=== PATIENT | male | born 1960 | race Caucasian/White ===

== ENCOUNTER → 2023-06-10 16:36 | Outpatient (CLI) | payer OTHER, SELFPAY ==
--- NOTE | ~2023-06-10 | XR_ITS ---
Lumbosacral Spine: AP and lateral views Clinical History: Pain Findings: The normal lordotic curve is maintained. The vertebral bodies and posterior elements are i ntact. The intervertebral disc spaces are preserved. There are moderate to advanced facet joint dege nerative changes throughout the lumbar spine. There are anterior marginal osteophytes L1-L4. The sacr oiliac joints are normally outlined. Impression: Extensive facet arthropathy, as detailed above. Reviewed, dictated and finalized at location M. Impression: Extensive facet arthropathy, as detailed above.
--- NOTE | ~2023-06-10 | XR_ITS ---
Thoracic spine: Clinical Indication: Back pain AP and lateral views were performed. No fracture is seen. There is normal alignment of the vertebrae. The intervertebral disc spaces appe ar normal. Paravertebral soft tissues appear normal. There is extensive DISH of the thoracic spine. Impression: Extensive DISH of the thoracic spine. Reviewed, dictated and finalized at location . Impression: Extensive DISH of the thoracic spine.
--- NOTE | ~2023-06-10 | XR_ITS ---
Cervical Spine: AP, lateral, open-mouth views Clinical History: Pain Findings: The normal lordotic curve is maintained. The vertebral bodies and posterior elements appea r intact. The intervertebral disc spaces are well maintained. There are mild facet joint degenerativ e changes at the mid to lower cervical spine. There are anterior marginal osteophytes from C4 through C7. Pre-vertebral soft tissues are unremarkable. Impression: Mild degenerative changes, as above. Reviewed, dictated and finalized at location M. Impression: Mild degenerative changes, as above.
== END ==
PROVIDERS: PCP Chiropractor; Visit Provider Chiropractor
DX: M54.50 Low back pain, unspecified (principal); M48.14 Ankylosing hyperostosis [Forestier], thoracic region; M50.30 Other cervical disc degeneration, unspecified cervical region
CPT/HCPCS: 72040; 72070; 72100